=== PATIENT | female | born 1970 | race African-American/Black ===

== ENCOUNTER 2019-01-08 12:21 | Day surgery (SDC) | payer OTHER ==
[2018-12-29 16:24] VITALS: BMI 43.7
[2019-01-08 14:11] VITALS: TEMP 97.6
[2019-01-08 14:39] VITALS: BP 117/81; PULSE 79
--- NOTE | 2019-01-08 14:55 | OP ---
Operative Note - Note: Operative Date: 01/08/19 Pre-Operative Diagnosis: weight regain s/p sleeve gastrectomy Operation: EGD/upper endoscopy Post-Operative Diagnosis: Same as Pre-op (Dilated sleeve) Surgeon: Karson Dueñas Anesthesia: MAC Specimens Removed: None Estimated Blood Loss (mls): 0 Operative Report Dictated: Yes
--- NOTE | 2019-01-09 10:47 | OP ---
DATE OF OPERATION: 01/08/2019 PREOPERATIVE DIAGNOSIS: Weight regain status post prior bariatric surgery, sleeve gastrectomy. POSTOPERATIVE DIAGNOSES: 1. Weight regain status post prior bariatric surgery, sleeve gastrectomy. 2. Dilated stomach status post sleeve gastrectomy. PROCEDURE: Upper endoscopy/esophagogastroduodenoscopy. SURGEON: Guilherme Dueñas MD PLACE OF SERVICE: [facility], [address] [place] [address] SPECIMEN: None. ESTIMATED BLOOD LOSS: Zero. ANESTHESIA: MAC. REASON FOR PROCEDURE: This is a 40-year-old female who presents for weight regain after a prior vertical sleeve gastrectomy. Because of her weight regain and a BMI of 43 and the ability to tolerate more diet, question of dilation of her sleeve was questioned. Because of this, she was consented for an upper endoscopy/EGD. The risks and benefits of the procedure were explained. These included bleeding, infection, injury to surrounding structures; including the oral cavity, esophagus, stomach, sleeve, duodenum, perforation, obstruction, PR, DVT, PE and some other complications. She understood and signed informed consent. DESCRIPTION OF PROCEDURE: The patient was placed in the left lateral decubitus position after a bite block was inserted into the mouth. MAC was given by Anesthesia. Timeout was performed. The endoscope was placed into the patient's mouth and inserted into the oral cavity into the esophagus, GE junction, gastric sleeve and up to the level of the pylorus and beyond the duodenum. The proximal portion of the sleeve was noted to be mildly dilated. However, the distal part of the sleeve was noted to be moderately to severely dilated demonstrating dilation of her gastric sleeve and a reason for her increase in weight, even despite having a prior sleeve gastrectomy. The sleeve was noted to be stretched after a prior surgery. No other gross findings were noted. The stomach was suctioned, endoscope removed. Patient tolerated the procedure well, was transferred to the recovery room in stable condition. GUILHERME DUEÑAS M.D. [id number]
== END 2019-01-08 14:54 | disposition home or self-care (01) ==
LOC: FASU-ENDO 12:21 → EDBD 13:30 → FASU-ENDO 14:54
PROVIDERS: ATTEND Surgery
PROC: 0DJ08ZZ Inspection of Upper Intestinal Tract, Via Natural or Artificial Opening Endoscopic (ICD-10-PCS; principal; 2019-01-08 13:27)
DX: K31.89 Other diseases of stomach and duodenum (principal); R63.5 Abnormal weight gain; Z98.84 Bariatric surgery status

== ENCOUNTER 2019-05-14 06:09 | Day surgery (SDC) | payer OTHER ==
[2019-05-07 11:39] VITALS: BMI 44.1
[2019-05-14] MEDS ORDERED: BUPIVACAINE HCL/PF 0.5% (5 MG/ML) 30 ML VIAL IJ ONE (07:12)
[2019-05-14] MEDS ORDERED: MIDAZOLAM HCL 2 MG/2 ML SINGLE DOSE VIAL ONE ×2 (07:12→07:22)
[2019-05-14] MEDS ORDERED: DEXAMETHASONE SOD PHOSPHATE/PF 10 MG/ML SDV ONE (07:12)
[2019-05-14] MEDS ORDERED: fentaNYL CITRATE 250 MCG/5 ML VIAL ONE (07:21)
[2019-05-14] MEDS ORDERED: PROPOFOL 20 ML ONE (07:21)
[2019-05-14] MEDS ORDERED: SUCCINYLCHOLINE CHLORIDE 200 MG/10 ML SYRINGE ONE (07:21)
[2019-05-14] MEDS ORDERED: ROCURONIUM BROMIDE 50 MG/5 ML SYRINGE ONE (07:22)
[2019-05-14] MEDS ORDERED: ALBUTEROL SO4 HFA INHALER IH PRN (07:32)
--- NOTE | 2019-05-14 07:35 | HP ---
Admitting History and Physical - Admission Chief Complaint: Morbid obesity History Source: Patient Limitations to Obtaining History: No Limitations - Past Medical History Pulmonary: Yes: Asthma ...LMP Comment: hysterectomy - Past Surgical History Past Surgical History: Yes: Tubal Ligation Additional Past Surgical History: Bladder lift - Smoking History Smoking history: Never smoked Have you smoked in the past 12 months: No - Alcohol/Substance Use Hx Alcohol Use: Yes (OCCASIONALLY) - Social History ADL: Independent Home Medications - Allergies Allergies/Adverse Reactions: Allergies Allergy/AdvReac Type Severity Reaction Status Date / Time No Known Drug Allergies Allergy Verified 05/07/19 11:46 blueberry AdvReac Severe Hives Verified 05/07/19 11:46 chocolate flavor AdvReac Severe Hives Verified 05/07/19 11:46 sesame oil AdvReac Severe Hives Verified 05/07/19 11:46 strawberry AdvReac Severe Hives Verified 05/07/19 11:46 EGGPLANT AdvReac Severe Hives Uncoded 05/07/19 11:46 - Home Medications Home Medications: Ambulatory Orders Albuterol Sulfate [Albuterol Sulfate Hfa] 18 gm IH BID PRN 12/29/18 Fluticasone/Salmeterol [Advair 250-50 Diskus] 1 each IH DAILY PRN 12/29/18 Diclofenac Sodium 50 mg PO DAILY PRN 05/07/19 Estrogens, Conjugated [Premarin] 0.625 mg PO DAILY 05/07/19 Family Medical History Family History: Unremarkable Review of Systems - Review of Systems Constitutional: denies: Chills, Fever Neck: reports: No Symptoms Cardiovascular: reports: No Symptoms Respiratory: reports: No Symptoms Gastrointestinal: reports: No Symptoms Neurological: reports: No Symptoms Pain Intensity: 0 Physical Examination Vital Signs: Vital Signs Temperature 98.4 F 05/14/19 06:35 Pulse Rate 75 05/14/19 06:35 Respiratory Rate 17 05/14/19 06:35 Blood Pressure 116/72 05/14/19 06:35 O2 Sat by Pulse Oximetry (%) 100 05/14/19 06:35 Constitutional: Yes: Calm Neck: Yes: WNL Cardiovascular: Yes: WNL Respiratory: Yes: WNL Gastrointestinal: Yes: Soft, Abdomen, Obese Neurological: Yes: Alert, Oriented Problem List - Problems (1) Morbid obesity due to excess calories Code(s): E66.01 - MORBID (SEVERE) OBESITY DUE TO EXCESS CALORIES Assessment/Plan Laparoscopic possible open gastric band placement, possible liver biopsy, possible upper endoscopy
[2019-05-14] MEDS ORDERED: ceFAZolin SODIUM 1 GM VIAL ONE (08:09)
[2019-05-14] MEDS ORDERED: BUPIVACAINE HCL 0.25% 125 MG/50 ML VIAL ONE (08:21)
[2019-05-14] MEDS ORDERED: GLYCOPYRROLATE 0.2 MG/1 ML VIAL ONE (09:02)
[2019-05-14] MEDS ORDERED: NEOSTIGMINE METHYLSULFATE 0.5 MG/ML - 10 ML MDV ONE (09:02)
[2019-05-14] MEDS ORDERED: BUPIVACAINE HCL/PF 0.25% (2.5MG/ML) 10 ML VIAL IJ ONE (09:42)
[2019-05-14] MEDS ORDERED: ENOXAPARIN NA (PORCINE) 40 MG/0.4 ML DISP.SYRIN SQ ONE ×3 (09:58→13:30)
[2019-05-14] MEDS ORDERED: ONDANSETRON 4 MG/2 ML VIAL IVPUSH PRN ×2 (09:58→11:59)
[2019-05-14] MEDS ORDERED: BUDESONIDE/FORMETEROL FUMARATE 80/4.5 mcg INHALER IH SCH (10:00)
[2019-05-14] MEDS ORDERED: SODIUM CHLORIDE 1,000 ML IV SCH (10:00)
[2019-05-14] MEDS ORDERED: FAMOTIDINE 20 MG/50 ML IVPB 20 MG/50 ML MG IVPB SCH (10:00)
--- NOTE | 2019-05-14 10:00 | OP ---
Operative Note - Note: Operative Date: 05/14/19 Pre-Operative Diagnosis: Morbid obesity Operation: Diagnositic laparoscopyc. Laparoscopic lysis of adhesions. Laparoscopic gastric band placement. Laparoscopic wedge liver biopsy Post-Operative Diagnosis: Other (Morbid obesity, intraabdominal adhesions, hepatomegaly) Surgeon: Karson Dueñas Due Diligence Coordinator: Damon Luis Anesthesia: General Specimens Removed: liver biopsy Estimated Blood Loss (mls): 30 Drains & Tubes with Location: Large Lap AP band Operative Report Dictated: Yes
[2019-05-14] MEDS ORDERED: FAMOTIDINE 20 MG/50 ML IVPB 20 MG/50 ML MG IVPB ONE (10:24)
[2019-05-14] MEDS ORDERED: ONDANSETRON 4 MG/2 ML VIAL ONE (10:24)
[2019-05-14] MEDS ORDERED: FAMOTIDINE 20 MG PREMIXED IVPB IVPB ONE (10:30)
[2019-05-14 10:43] LABS: HEMATOCRIT 38.1 % (32.4-45.2); HEMOGLOBIN 12.2 GM/dl (10.7-15.3); MCH 27.4 pg (25.7-33.7); MCHC 32.2 g/dl (32.0-36.0); MEAN PLT VOLUME 10.2 fl (7.5-11.1); PLATELET COUNT 195 K/MM3 (134-434); RBC 4.48 M/mm3 (3.60-5.2); RDW 13.7 % (11.6-15.6); WHITE BLOOD COUNT 12.6 K/mm3 (4.0-10.8)
[2019-05-14 10:49] LABS: CALCIUM 8.4 mg/dl (8.5-10); CREATININE 0.8 mg/dl (0.55-1.3); POTASSIUM 3.9 mmol/L (3.5-5.1)
[2019-05-14 11:25] VITALS: TEMP 97.9
[2019-05-14] MEDS ORDERED: oxyCODONE HCL 5 MG TABLET PO PRN ×2 (11:59)
[2019-05-14] MEDS ORDERED: PROMETHAZINE HCL 25 MG/1 ML VIAL IVPB PRN (11:59)
[2019-05-14] MEDS ORDERED: oxyCODONE HCL 5 MG TABLET ONE (13:41)
[2019-05-14] MEDS ORDERED: oxyCODONE HCL 5 MG TABLET PO ONE ×2 (13:45)
[2019-05-14 14:39] VITALS: BP 122/66; PULSE 89
--- NOTE | 2019-05-14 16:19 | SPEC ---
DATE OF OPERATION: 05/14/2019 PLACE OF SERVICE: [facility], [address] [place] [id number] SURGEON: Karson Dueñas MD LABELING SPECIALIST: Damon Luis MD PREOPERATIVE DIAGNOSES: 1. Morbid obesity. 2. Body mass index of 44.1. POSTOPERATIVE DIAGNOSES: 1. Morbid obesity. 2. Body mass index of 44.1. 3. Hepatomegaly. 4. Intra-abdominal adhesions. PROCEDURE: 1. Diagnostic laparoscopy 2. Laparoscopic lysis of intra-abdominal adhesions. 3. Laparoscopic gastric band placement. 4. Laparoscopic wedge liver biopsy. SPECIMEN: Liver biopsy. ESTIMATED BLOOD LOSS: 30 mL. DRAINS: None. ANESTHESIA: GET. BAND: Large Lap-Band AP. TUBES AND GASTROSTOMY TUBE: By Anesthesia. REASON FOR PROCEDURE: This is a 48-year-old female who presents for weight loss options. After describing different options, she decided to proceed with laparoscopic gastric band, possible open, possible liver biopsy, possible upper endoscopy. The patient was seen by the respective subspecialties and cleared for surgery. The risks and benefits of the procedure were explained. These included bleeding, infection, hernia, CO, DVT, PE, injury to surrounding structures including the liver, colon, bowel, spleen, esophagus, vessel injury, nerve injury, weight regain, obstruction, gastric band slip, gastric band erosion, port site slip, port site infection, vitamin deficiency, hair loss, and as some of the possible complications. The patient understood and signed informed consent. DESCRIPTION OF PROCEDURE: The patient was placed supine on the operating room table. The patient underwent general endotracheal intubation. The arms were brought out at 90 degrees and secured. A footboard was placed and the legs were secured laterally with padding. The abdomen was prepped and draped in the usual sterile fashion. A time-out was performed. An incision was made in the left upper quadrant and a Veress needle inserted. Pneumoperitoneum was established. The Veress needle was then removed. A 5-mm trocar was then placed under direct visualization with the laparoscope. Inspection of the abdominal cavity was then performed with the laparoscopic camera. Subsequently, in the right upper quadrant to the right of midline, a 15-mm trocar was inserted under direct visualization. A 5-mm trocar was placed further laterally in the right upper quadrant and a 5-mm trocar placed below the left costal margin. A stab wound was made in the subxiphoid area and a Kacy clamp inserted and removed to dilate the tract. A Dinesh liver retractor was inserted. The post was secured at the bedside by the nursing staff. The patient was placed in steep reverse Trendelenburg position, and the Dinesh liver retractor was used to secure the liver towards the anterior abdominal wall. The fundus of the stomach was noted and grasped towards the patient's right side and caudad. The omentum was also retracted downward as well. Electrocautery was used to score the peritoneum over the left esophagogastric junction freeing this area until the left jhonatan of the diaphragm was noted. The stomach was then pulled laterally to the patients left side, and the caudate lobe of the liver was identified. The pars flaccida was identified, and an opening created within it. The right jhonatan of the diaphragm was noted. The caudate lobe of the liver was retracted, and the inferior vena cava was noted to be away from the field. The peritoneum anterior to the right jhonatan was scored with electrocautery, and a laparoscopic dissector was used to gently make a tunnel from the right to the left jhonatan until it was free in the left upper quadrant of the abdomen. In addition, because of adhesions near the anterior abdominal wall, stomach, and liver, laparoscopic lysis of adhesions was performed. This was done using hook electrocautery until all adhesions were lysed in order to gain visualization to place the gastric band. The gastric band was then chosen and prepped by the automotive tire technician. This was then placed within the abdominal cavity. The band tubing was placed into the laparoscopic dissector, which was pulled and withdrawn to the patients right side. The band tubing was placed within the band buckle and secured, securing the band around the stomach. The band was noted to be in good position and not too tight around the stomach. The stomach was then imbricated over the band. An Endo Stitch was used to grab the body of the stomach and secured to itself, imbricating the stomach over the band. Hemostasis was noted. The band tubing was then brought out of the 15-mm trocar. A wedge liver biopsy was then performed. The left lobe of the liver was identified. A portion of the edge of the left lobe of the liver was grasped. Using electrocautery, a wedge of the left liver was excised. The specimen was removed and sent off the field. Hemostasis of the wedge liver biopsy site was attained and noted using electrocautery. The Dinesh liver retractor was removed under direct visualization. Pneumoperitoneum was desufflated and all trocars removed. The skin at the 15-mm trocar site was extended, and dissection continued until the anterior fascia was identified. Four 2-0 Prolene sutures were placed in the fascia. The end of the band tubing was cut and removed and sent off the field. The port was secured to the band tubing. The port was secured to the fascia using the four 2-0 Prolene sutures. Hemostasis was again noted. Marcaine was injected at all incision sites. A 3-0 Vicryl suture was used to close the deep subcutaneous tissue at the 15-mm incision site. 4-0 Biosyn sutures were used to close all incision sites. Sterile dressings were applied. The patient tolerated the procedure well and was transferred to the recovery room in stable condition. Ade [id number]
--- NOTE | 2019-05-16 17:28 | PATH ---
Surgical Pathology Report Patient Name: CM STINSON Med. Rec. #: [id number] /Age/Gender: 1970 (Age: 48) / F Account: [id number] Location: [facility] Taken: 05/14/2019 Received: 05/14/2019 Reported: 05/16/2019 Physicians: Karson Dueñas M.D. Specimen(s) Received LIVER BIOPSY Clinical History Morbid obesity Final Diagnosis LIVER, BIOPSY: SUBCAPSULAR LIVER TISSUE WITH FOCAL STEATOSIS (~2%). NO HISTOLOGIC EVIDENCE OF STEATOHEPATITIS. IRON STAIN IS NEGATIVE FOR IRON DEPOSITION. NO DEFINITIVE FIBROSIS PRESENT (TRICHROME STAIN). Electronically Signed Mary Gonzalez M.D. Gross Description Received in formalin labeled "liver biopsy," is a 1.3 x 0.9 x 0.3 cm rose portion of soft tissue, consistent with a liver biopsy. The specimen is submitted in toto in one cassette. 05/15/201905/15/2019
== END 2019-05-14 14:35 | disposition home or self-care (01) ==
LOC: FASU 06:09
PROVIDERS: ATTEND Surgery
PROC: 0DV64CZ Restriction of Stomach with Extraluminal Device, Percutaneous Endoscopic Approach (ICD-10-PCS; principal; 2019-05-14 08:22)
PROC: 0FB24ZX Excision of Left Lobe Liver, Percutaneous Endoscopic Approach, Diagnostic (ICD-10-PCS; 2019-05-14 08:22)
DX: E66.01 Morbid (severe) obesity due to excess calories (principal); Z68.41 Body mass index [BMI] 40.0-44.9, adult; J45.909 Unspecified asthma, uncomplicated; Z90.710 Acquired absence of both cervix and uterus; R16.0 Hepatomegaly, not elsewhere classified; K66.0 Peritoneal adhesions (postprocedural) (postinfection)
CPT/HCPCS: 36415; 74240-TC-FY; 80048; 85027; 88305-TC; 88313-TC; 94760

== ENCOUNTER 2021-03-09 06:55 | Day surgery (SDC) | payer OTHER ==
[2021-03-05 15:11] VITALS: BMI 39.2
[2021-03-09] MEDS ORDERED: BUPIVACAINE HCL/PF 0.25% (2.5MG/ML) 10 ML VIAL ONE (07:18)
[2021-03-09] MEDS ORDERED: ROCURONIUM BROMIDE 50 MG/5 ML SYRINGE ONE (07:31)
[2021-03-09] MEDS ORDERED: fentaNYL CITRATE 250 MCG/5 ML VIAL ONE (07:31)
[2021-03-09] MEDS ORDERED: SUCCINYLCHOLINE CHLORIDE 200 MG/10 ML SYRINGE ONE (07:31)
[2021-03-09] MEDS ORDERED: PROPOFOL 20 ML ONE ×2 (07:31)
[2021-03-09] MEDS ORDERED: MIDAZOLAM HCL 2 MG/2 ML SINGLE DOSE VIAL ONE (07:32)
[2021-03-09] MEDS ORDERED: ALBUTEROL SO4 HFA INHALER IH PRN (09:06)
[2021-03-09] MEDS ORDERED: DEXAMETHASONE SOD PHOSPHATE 4 MG/1 ML VIAL ONE (09:40)
[2021-03-09] MEDS ORDERED: ceFAZolin SODIUM 1 GM VIAL ONE (09:40)
[2021-03-09] MEDS ORDERED: LIDOCAINE HCL 2% JELLY (5 ML/TUBE) ONE (09:40)
[2021-03-09] MEDS ORDERED: KETOROLAC TROMETHAMINE 30 MG/1 ML VIAL ONE (09:40)
[2021-03-09] MEDS ORDERED: ONDANSETRON 4 MG/2 ML VIAL ONE (09:40)
[2021-03-09] MEDS ORDERED: LIDOCAINE HCL/PF 2% SDV 5ML VIAL ONE (09:40)
[2021-03-09] MEDS ORDERED: LABETALOL HCL 5 MG/1 ML (100MG/20 ML VIAL) ONE (09:51)
[2021-03-09] MEDS ORDERED: NEOSTIGMINE METHYLSULFATE 0.5 MG/1 ML - 10 ML MDV ONE (10:45)
[2021-03-09] MEDS ORDERED: GLYCOPYRROLATE 0.2 MG/1 ML VIAL ONE ×2 (10:45)
[2021-03-09] MEDS ORDERED: ONDANSETRON 4 MG/2 ML VIAL IVPUSH PRN ×2 (11:04→11:12)
[2021-03-09] MEDS ORDERED: oxyCODONE HCL 5 MG TABLET PO PRN ×2 (11:12)
[2021-03-09] MEDS ORDERED: PROMETHAZINE HCL 25 MG/1 ML VIAL IVPUSH PRN (11:12)
[2021-03-09] MEDS ORDERED: SODIUM CHLORIDE 1,000 ML IV SCH (11:15)
[2021-03-09 11:47] LABS: CALCIUM 8.5 mg/dl (8.5-10); CREATININE 0.8 mg/dl (0.55-1.3)
[2021-03-09 12:56] LABS: HEMATOCRIT 37.8 % (32.4-45.2); HEMOGLOBIN 12.4 GM/dL (10.7-15.3); MCH 29.1 pg (25.7-33.7); MCHC 32.9 g/dl (32.0-36.0); MEAN CELL VOLUME 88.6 fl (80-96); MEAN PLT VOLUME 10.1 fl (7.5-11.1); PLATELET COUNT 191 10^3/uL (134-434); RBC 4.27 M/mm3 (3.60-5.2); RDW 14.5 % (11.6-15.6); WHITE BLOOD COUNT 8.5 K/mm3 (4.0-10.0)
[2021-03-09] MEDS ORDERED: ENOXAPARIN NA (PORCINE) 40 MG/0.4 ML DISP.SYRIN SQ ONE (15:00)
[2021-03-09] MEDS: FAMOTIDINE 20 MG/50 ML IVPB 20 MG/50 ML MG IVPB SCH (21:47)
[2021-03-09] MEDS ORDERED: IBUPROFEN 600 MG TABLET (FP) PO PRN (23:19)
[2021-03-10] MEDS: FAMOTIDINE 20 MG/50 ML IVPB 20 MG/50 ML MG IVPB SCH (09:55)
[2021-03-10 14:16] VITALS: BP 117/65; PULSE 63; TEMP 98.9
== END 2021-03-10 16:13 | disposition home or self-care (01) ==
LOC: FASU 06:55 → FM/S 12:22 → FASU 03-10 16:13
PROVIDERS: ATTEND Surgery
PROC: 0DNW4ZZ Release Peritoneum, Percutaneous Endoscopic Approach (ICD-10-PCS; 2021-03-09)
PROC: 0DP64CZ Removal of Extraluminal Device from Stomach, Percutaneous Endoscopic Approach (ICD-10-PCS; principal; 2021-03-09 09:43)
DX: T85.518A Breakdown (mechanical) of other gastrointestinal prosthetic devices, implants and grafts, initial encounter (principal); Y73.3 Surgical instruments, materials and gastroenterology and urology devices (including sutures) associated with adverse incidents; Y93.89 Activity, other specified; Y92.89 Other specified places as the place of occurrence of the external cause; R11.2 Nausea with vomiting, unspecified; R13.10 Dysphagia, unspecified; K66.0 Peritoneal adhesions (postprocedural) (postinfection)
CPT/HCPCS: 36415; 74240-TC-FY; 80048; 85027; 88300-TC; 94760